=== PATIENT | male | born 1950 | race Two or more races ===

== ENCOUNTER 2019-12-04 09:26 | Emergency (ER) | payer OTHER ==
[~2019-12-04] VITALS: Ht 170.2 cm; Wt 58.1 kg
[2019-12-04] MEDS ORDERED: TOPROL XL50 M1 (09:36)
[2019-12-04] MEDS ORDERED: AMBIEN CR12.5 MG PO ×2 (09:36→11:04)
[2019-12-04] MEDS ORDERED: CYMBALTA20 MG PO (09:36)
[2019-12-04] MEDS ORDERED: NORFLEX100MG PO (10:52)
[2019-12-04] MEDS ORDERED: KETO10TA2 PO (10:52)
== END 2019-12-04 11:11 | disposition home or self-care (01) ==
LOC: ER 09:26
DX: S30.0XXA Contusion of lower back and pelvis, initial encounter (principal); S10.83XA Contusion of other specified part of neck, initial encounter; W18.39XA Other fall on same level, initial encounter; Y93.89 Activity, other specified; Y92.59 Other trade areas as the place of occurrence of the external cause; Y99.8 Other external cause status